=== PATIENT | male | born 1985 ===

== ENCOUNTER 2017-09-20 14:30 | Emergency (ER) | payer MEDICAID ==
[2017-09-20 14:38] VITALS: TEMP 98.8
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
[2017-09-20 16:16] VITALS: BP 132/84; PULSE 88; RESP 14
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
[2017-09-20 17:01] VITALS: O2SAT 97
== END 2017-09-20 17:15 | disposition home or self-care (01) ==
LOC: H.ER 14:30
DX: M54.9 Dorsalgia, unspecified (principal); V49.59XA Passenger injured in collision with other motor vehicles in traffic accident, initial encounter; F17.210 Nicotine dependence, cigarettes, uncomplicated
CPT/HCPCS: 72070; 96372; 99282; J1885